=== PATIENT | male | born 1965 | race Caucasian/White ===

== ENCOUNTER 2022-09-12 09:03 | Emergency (ER) | payer OTHER ==
[~2022-09-12] VITALS: Ht 177.8 cm; Wt 89.8 kg
[2022-09-12 09:11] VITALS: BP 155/82
[2022-09-12] MEDS ORDERED: IBUPROFEN 600 MG TABLET ONE (10:20)
[2022-09-12] MEDS ORDERED: IBUP-1955 PO (10:20)
[2022-09-12] MEDS ORDERED: IBUPROFEN 600 MG TABLET PO ONE (11:00)
== END 2022-09-12 10:40 | disposition home or self-care (01) ==
LOC: ER 09:20
DX: S86.002A Unspecified injury of left Achilles tendon, initial encounter (principal); I10 Essential (primary) hypertension; E78.00 Pure hypercholesterolemia, unspecified; Z60.2 Problems related to living alone; X50.1XXA Overexertion from prolonged static or awkward postures, initial encounter; Y93.89 Activity, other specified; Y92.89 Other specified places as the place of occurrence of the external cause; Y99.8 Other external cause status
CPT/HCPCS: 73590-TC; 73610-TC